=== PATIENT | male | born 1975 | race Caucasian/White ===

== ENCOUNTER 2023-04-27 11:49 | Outpatient (AMB) | payer OTHER, SELFPAY ==
[2023-04-27 11:56] VITALS: BP 126/74; PULSE 67; RESP 12; TEMP 36.6; O2SAT 99; BMI 29.2
--- NOTE | 2023-04-27 11:56 | MHC.PC.OV ---
Vital Signs 04/27/23 11:56 Height 5 ft 7 in Weight 186 lb 6 oz BMI 29.2 BP 126/74 Blood Pressure Location Lt brachial Position Sitting Respiration 12 Pulse 67 Pulse Source Pulse Oximeter Temp 97.8 F Temp Source Temporal Artery Scan Pulse Oximetry (%) 99 Oxygen Delivery Method Room Air Intake Visit Reasons: phy Intake Note: Patiuent would like a refill on Viagra. [facility] Director Required: No Accompanied by: Self / Same As Patient Allergies No Known Allergies Allergy (Verified 04/27/23 12:04) Tobacco use date assessed: 04/27/23 Dental Screening Dental Screen Date: 04/27/23 Did you have a dental visit in the last 12 months?: Yes Did you have a dental problem in the last 6 months where you did not have access to dental care?: No Was dental information given to patient?: Patient has dentist HPI phy HPI Details 47 y/o male presents for a CPE with f/u labs and health maintenance. No recent labs to review. Pt does report some urinary frequency. HPI Comments History of Present Illness Details Documentation assistance for Zechariah Landers MD, was provided by Martín Ulloa,?Cheese Specialist on 04/27/2023 12:35 PM EST. I, Dr. Landers, have read, observed, and verified documentation.? 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 1. Little interest or pleasure in doing things: several days 2. Feeling down, depressed, or hopeless: several days 3. Trouble falling or staying asleep, or sleeping too much: not at all 4. Feeling tired or having little energy: several days 5. Poor appetite or overeating: not at all 6. Feeling bad about yourself - or that you are a failure or have let yourself or your family down: not at all 7. Trouble concentrating on things, such as reading the newspaper or watching television: nearly every day 8. Moving or speaking so slowly that other people could have noticed. Or the opposite - being so fidgety or restless that you have been moving around a lot more than usual: several days 9. Thoughts that you would be better off or of hurting yourself in some way: not at all Total score: 7 Depression Screening Interpretation: Positive Depression Screening Done: Yes 27942 - PHQ-9 Billing: Yes Source: Developed by Drs. Rosendo Ochoa, Stacey Coleman, Mello Palacio and colleagues, with an educational carmelita from [employer]. AUDIT C Alcohol Use Questionnaire (AUDIT-C) 1. How often do you have a drink containing alcohol?: 2-4 times a month 2. How many drinks containing alcohol do you have on a typical day when you are drinking?: 5 or 6 3. How often do you have six or more drinks on one occasion?: Weekly Total Score: 7 MENDY-7 AMB Questionnaire MENDY-7 Date MENDY - 7 assessed: 04/27/23 Feeling nervous, anxious, or on edge: 1 = Several days Not being able to stop or control worryin = Not at all Worrying too much about different things: 1 = Several days Trouble relaxin = Several days Being so restless that it is hard to sit still: 1 = Several days Becoming easily annoyed or irritable: 2 = More than half the days Feeling afraid as if something awful might happen: 0 = Not at all Total MENDY-7 score (0-4 normal; 5-9 mild; 10-14 moderate; 15-21 severe): 6 Source: Developed by Drs. Rosendo Ochoa, Stacey Coleman, Mello Palacio and colleagues, with an educational carmelita from [employer]. MENDY-7 Assessment Billing MENDY-7 Assessment Tool: MENDY-7 Assessment 73196 Review of Systems Const Denies chills, Denies fatigue, Denies fever(s), Denies headache(s) and Denies weakness Eyes Denies change in vision ENT Denies dizziness, Denies headache(s), Denies hearing loss, Reports nasal congestion, Denies sinus pain, Denies sinus pressure and Denies sore throat Card Denies chest pain, Denies lightheadedness, Denies dyspnea and Denies other (palpitations) Resp Denies cough, Denies dyspnea and Denies wheezing GI Denies abdominal pain, Denies melena, Denies hematochezia, Denies change in bowel habits, Denies dyspepsia and Denies nausea Denies hematuria, Denies dysuria and Reports urinary frequency Musc Denies abnormal gait, Denies myalgias, Denies arthralgias, Denies numbness and Denies tingling Skin/Breast Denies rash, Denies unusual bruising and Denies wounds Neuro Denies abnormal gait, Denies dizziness, Denies headache(s), Denies memory loss, Denies numbness, Denies Sensory deficit (Neuro), Denies tingling and Denies weakness Psych Denies anxiety, Denies depression and Denies memory loss Endo Denies cold intolerance, Denies fatigue, Denies heat intolerance, Denies polydipsia and Denies polyuria Viet/Lymph Denies easy bleeding and Denies easy bruising Aller/Immun Denies wheezing Physical exam (Primary Care) Vital Signs: Last Vital Signs Temp 97.8 F 04/27/23 11:56 Pulse 67 04/27/23 11:56 Resp 12 04/27/23 11:56 BP 126/74 04/27/23 11:56 Pulse Ox 99 04/27/23 11:56 Oxygen Delivery Method Room Air 04/27/23 11:56 BMI result Body Mass Index 29.2 Tobacco/Smoking Status: Tobacco use Status Tobacco use date assessed 04/27/23 04/27/23 12:13 Patient Tobacco Use Status Former Tobacco user 04/27/23 12:13 Tobacco use type Cigarette 04/27/23 12:13 e-Cigarette/Vaping Use Former Use 04/27/23 12:13 PHQ-9: PHQ-9 Score PHQ-9: Total score 7 04/27/23 12:34 Depression Screening Interpretation: Positive Const General: no acute distress, well developed, alert and awake Nutritional Appearance: well nourished Orientation/consciousness: patient oriented x3 HENMT Head: Yes normocephalic and Yes atraumatic Ears: hearing grossly normal bilaterally and TM's normal bilaterally General nose exam: Normal external nose present and Normal nares present Mouth: Normal oral and palatal mucosa present and moist mucous membranes Teeth and gingiva: dentition normal Throat: Yes posterior oropharynx normal Eyes General: appearance normal, both eyes and all related structures Pupils: Equal, round and reactive pupils present and Pupil accommodation reflex normal EOM: EOMs intact bilaterally Neck Neck: Yes normal visual inspection, Yes no lymphadenopathy and Yes trachea midline Thyroid: Thyroid normal Carotids: no bruits Lymphatic: no lymphadenopathy noted Chest Chest palpation & inspection: normal inspection of the chest Resp Effort & Inspection: normal respiratory effort Auscultation: clear to auscultation bilaterally Cardio Rate: regular rate Rhythm: regular rhythm Heart sounds: S1 normal heart sound present, S2 normal heart sound present, no gallops, no murmurs and no rubs Bruits: no abdominal aortic bruits and no carotid bruits GI Palpation (GI): No Abdominal aortic bruit present, Soft to palpation, nontender, No hepatosplenomegaly present and No Rebound tenderness present Auscultation: normal bowel sounds General: Yes no CVA tenderness Back/Spine/Pelvis Back: no CVA tenderness Cervical Spine: cervical ROM normal and No Cervical spine tenderness Thoracic/Lumbar Spine: thoraco-lumbar ROM normal, No pain with thoraco-lumbar ROM, No thoracic spinal tenderness and No lumbar spinal tenderness Skin Lesions: no lesions Rashes: no rashes Trauma: no lacerations or abrasions Wounds: no wounds Nails: normal Neuro General: patient oriented x3 Cranial nerves: Yes Equal, round and reactive pupils present Cognition (Neuro): normal cognition Gait exam (Neuro): Normal gait present Motor exam (neuro): 5/5 motor strength present throughout Sensory Exam: No Sensory deficit (Neuro) Deep tendon reflexes (DTR's): Right patellar reflex intensity grade: 2+ and Left patellar reflex intensity grade: 2+ Extrem General: Yes normal to inspection and No edema Psych Appearance: grossly normal Affect: normal affect Attitude: cooperative Thought process: Normal thought process present Assessment and Plan Assessment & Plan (1) Adult general medical exam: Code(s): Z00.00 - Encounter for general adult medical examination without abnormal findings Plan: 47-year-old?male?presents?for?complete?physical?exam Encouraged?healthy?diet?with?active?lifestyle?and?plenty?of?exercise (2) Erectile dysfunction: Code(s): N52.9 - Male erectile dysfunction, unspecified Plan: Benefits?from?sildenafil Refilled (3) Nasal congestion: Code(s): R09.81 - Nasal congestion Plan: Nasal?congestion?and?possible?small?polyp?at?left?Lindsey Trial?Flonase (4) Urinary frequency: Code(s): R35.0 - Frequency of micturition Plan: Possible?BPH Check?labs?including?PSA?and?urinalysis (5) Screening for colon cancer: Code(s): Z12.11 - Encounter for screening for malignant neoplasm of colon Plan: Due?for?colonoscopy. Also?has?family?history?of?polyps Referred (6) Screening for prostate cancer: Code(s): Z12.5 - Encounter for screening for malignant neoplasm of prostate Plan: Check?PSA (7) Family history of colon polyps, unspecified: Code(s): Z83.719 - Family history of colon polyps, unspecified Orders: Orders Lipid Panel Today Z00.00 - Encounter for general adult medical examination without abnormal findings Microalbumin, Random (w Creat) Today I10 - Essential (primary) hypertension Prostate Specific Antigen Scr Today Z12.5 - Encounter for screening for malignant neoplasm of prostate UA and rflx microscopic Today Z00.00 - Encounter for general adult medical examination without abnormal findings Comprehensive [place]. Panel Fast Today Z00.00 - Encounter for general adult medical examination without abnormal findings TSH reflex Free T4 Today Z00.00 - Encounter for general adult medical examination without abnormal findings Referrals Gastroenterology Referral Z12.11 - Encounter for screening for malignant neoplasm of colon, Z83.719 - Family history of colon polyps, unspecified Neuropsychiatry Referral R41.840 - Attention and concentration deficit Medications: New fluticasone propionate 50 mcg/actuation (Flonase Allergy Relief) administer into each nostril 1 spray intranasal Q12H 16 grams 2RF 30 days bupropion HCl 75 mg PO BID 60 tabs 1RF 30 days Refilled sildenafil (Viagra) administer 30 minutes to 4 hours before activity 100 mg PO DAILY 15 days PRN 4 tabs 6RF sexual activity Coding Level of Care Code Est Pt Level 3 (97464) Est Pt Prev Care 40-64y(07304) Diagnoses Adult general medical exam Z00.00 Erectile dysfunction N52.9 Nasal congestion R09.81 Urinary frequency R35.0 Screening for colon cancer Z12.11 Screening for prostate cancer Z12.5 Family history of colon polyps, unspecified Z83.719 Additional Codes MENDY-7 Assessment Billing - MENDY-7 Assessment Tool: MENDY-7 Assessment 92812 ([id number])
== END 2023-04-27 13:07 | disposition home or self-care (01) ==
PROVIDERS: PCP Family Medicine; Visit Provider Family Medicine
DX: Z00.00 Encounter for general adult medical examination without abnormal findings (principal); N52.9 Male erectile dysfunction, unspecified; R09.81 Nasal congestion; R35.0 Frequency of micturition; Z12.11 Encounter for screening for malignant neoplasm of colon; Z12.5 Encounter for screening for malignant neoplasm of prostate; Z83.719 Family history of colon polyps, unspecified
CPT/HCPCS: 99396

== ENCOUNTER 2023-05-06 12:18 | Outpatient (REF) | payer OTHER, SELFPAY ==
[2023-05-06 14:46] LABS: Appearance Urine Clear; Color Urine Yellow; Glucose Urine UA Negative (Negative); Leukocyte Esterase Urine Negative (Negative); Nitrite Urine Negative (Negative); Urine Blood Negative (Negative); Urine Ketones Negative (Negative); Urine Protein Negative (Neg-Trace)
[2023-05-06 15:11] LABS: Alanine Aminotransferase 37 U/L (0-40); Albumin Level 4.2 g/dL (3.5-5.0); Alkaline Phosphatase 44 U/L (39-117); Anion Gap 13 (12-20); Aspartate Amino Transferase 26 U/L (5-37); Bilirubin Total 0.9 mg/dL (0.0-1.0); Blood Urea Nitrogen 19 mg/dL (9-16); Calcium 9.5 mg/dL (8.4-10.2); Carbon Dioxide 27 mmol/L (22-29); Chloride 103 mmol/L (96-108); Cholesterol 245 mg/dL (<200); Estimated Glomerular Filt Rate > 60; Glucose Fasting 86 mg/dL (60-99); HDL Cholesterol 46 mg/dL (>40); LDL Cholesterol Calculated 173 mg/dL (<100); Potassium 4.2 mmol/L (3.3-5.1); Sodium 139 mmol/L (135-145); Total Protein 7.4 g/dL (6.5-8.0); Triglycerides 133 mg/dL (<150)
[2023-05-06 15:17] LABS: Prostate Specific Antigen Scr 0.53 ng/mL (<0.05-4.0); TSH reflex Free T4 1.25 uIU/mL (0.32-4.0)
[2023-05-06 15:30] LABS: Creatinine Urine 123.15 mg/dL; Microalbumin Urine < 5.0 mg/L
== END 2023-05-06 12:19 | disposition home or self-care (01) ==
LOC: HO.WFDLDS 12:18
PROVIDERS: Visit Provider Family Medicine
DX: Z00.00 Encounter for general adult medical examination without abnormal findings (principal); I10 Essential (primary) hypertension; Z12.5 Encounter for screening for malignant neoplasm of prostate
CPT/HCPCS: 36415; 80053; 80061; 81003; 82043; 82570; 84153; 84443

== ENCOUNTER 2023-05-19 12:54 | Outpatient (AMB) | payer OTHER, SELFPAY ==
--- NOTE | 2023-05-19 13:02 | MHC.OFFVIS ---
Intake Vital Signs 05/19/23 13:24 Height 5 ft 7 in Weight 184 lb BMI 28.8 BP 140/85 H Blood Pressure Location Lt brachial Position Sitting Pulse 55 Intake Visit Reasons: Colonoscopy Screening Allergies No Known Allergies Allergy (Verified 04/27/23 12:04) Medication List - Last Reconciled 05/19/23 by Mallory Rodriguez PA-C bupropion HCl 75 mg PO BID 30 days fluticasone propionate 50 mcg/actuation (Flonase Allergy Relief) 1 spray intranasal Q12H 30 days sildenafil (Viagra) 100 mg PO DAILY PRN 15 days HPI HPI Comments History of Present Illness Details A 47 y/o male referred for screening colonoscopy Mother- had polyps - no fam hx GI cancers Bowels normal Appetite good He has no nausea, vomiting, hematemesis, hematochezia fever chills PFSH Medical History Melanoma Surgical History Status post Mohs surgery Family History Other Substance abuse Social History Housing: House Patient Tobacco Use Status: Former Tobacco user Tobacco use type: Cigarette e-Cigarette/Vaping Use: Former Use service: No Current occupational status: employed 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 Cognitive needs: No Hearing needs: No Vision needs: No Review of Systems Const All systems reviewed & are unremarkable except as noted in HPI and below Card Denies dyspnea Resp Denies dyspnea GI Denies abdominal pain, Denies heartburn, Denies diarrhea, Denies nausea and Denies vomiting Physical Exam Vital Signs: Last Vital Signs Pulse 55 05/19/23 13:24 BP 140/85 H 05/19/23 13:24 BMI result Body Mass Index 28.8 Const General: cooperative, healthy appearing, comfortable, no acute distress and well developed Orientation/consciousness: No patient oriented x3 Limitations: no limitations Eyes Sclerae: sclerae normal Resp Effort & Inspection: normal respiratory effort and able to speak in complete sentences Auscultation: clear to auscultation bilaterally, no rales, no rhonchi and no wheezes Cardio Rate: regular rate Rhythm: regular rhythm Heart sounds: S1 normal heart sound present and S2 normal heart sound present GI Palpation (GI): Soft to palpation and nontender Auscultation: normal bowel sounds Skin General skin exam: no rashes or lesions noted Neuro General: No patient oriented x3 Extrem General: Yes full ROM Psych Appearance: grossly normal and well kempt Mental Status: mental status grossly normal Speech and movement: Normal speech and movement present and Clear speech present Affect: normal affect Attitude: cooperative Thought process: Normal thought process present Thought content: Normal thought content present Insight: Good insight present (Psych) Judgement: Good judgement present (Psych) Assessment & Plan Assessment & Plan (1) Screening for colon cancer: Comment: Mother for history of colon polyps Index screening colonoscopy No family history GI cancer Discussed procedure, rare risk need for a Code(s): Z12.11 - Encounter for screening for malignant neoplasm of colon Plan Index screening colonoscopy MiraLax Gatorade prep Orders: Orders Colonoscopy - GI Use Only Today Z12.11 - Encounter for screening for malignant neoplasm of colon Medications: New bisacodyl (Dulcolax (bisacodyl)) Day before procedure, prep day Take 4 tablets by mouth upon awakening followed by large glass of water 20 mg (4 x 5 mg) PO ONCE 4 tabs 0RF colonoscopy prep 1 day Z12.11 - Encounter for screening for malignant neoplasm of colon polyethylene glycol 3350 (Miralax) Take as directed by mouth the day before your procedure. 238 grams PO ONCE PRN 238 grams 0RF laxative effect 1 day Patient Instructions: Index screening colonoscopy MiraLax Gatorade prep Literature given Must be escorted due to anesthesia Encouraged to call questions or concerns Coding Level of Care Code New Pt Level 3 (42716) Diagnoses Screening for colon cancer Z12.11 Time Spent (min) 30
[2023-05-19 13:24] VITALS: BP 140/85; PULSE 55; BMI 28.8
== END 2023-05-19 13:48 | disposition home or self-care (01) ==
PROVIDERS: PCP Family Medicine; Visit Provider Physician Assistant
DX: Z12.11 Encounter for screening for malignant neoplasm of colon (principal); Z01.818 Encounter for other preprocedural examination
CPT/HCPCS: 99203

== ENCOUNTER → 2023-05-19 12:54 | Outpatient (BNVA) | payer OTHER, SELFPAY | PROVIDERS: PCP Family Medicine; Visit Provider Physician Assistant ==

== ENCOUNTER 2023-05-24 14:56 | Outpatient (AMB) | payer OTHER, SELFPAY ==
--- NOTE | 2023-05-24 15:01 | A.OFFPC_ITS ---
Vital Signs 05/24/23 15:02 Height 5 ft 7 in Weight 188 lb BMI 29.4 BP 108/70 Blood Pressure Location Lt brachial Position Sitting Respiration 13 Pulse 84 Pulse Source Pulse Oximeter Temp 98.9 F Temp Source Oral Pulse Oximetry (%) 98 Oxygen Delivery Method Room Air Intake Visit Reasons: cough with phlegm coming up, chest tightness Intake Note: Patient reports he has had a cough for ~3 weeks, coughing became productive ~1 week ago with some phlegm coming up and chest tightness. Patient reports sore throat. Patient reports he is out of breath quicker with this cough when he is doing something like yard work. Educational Sign Language Interpreter Required: No Accompanied by: Self / Same As Patient Allergies No Known Allergies Allergy (Verified 05/24/23 15:09) Tobacco use date assessed: 04/27/23 HPI HPI Comments History of Present Illness Details 47 y/o male presents with c/o ongoing co ugh for the past 3 weeks. He notes that the cough became productive a week and half ago with brownish phlegm. He reports associated sob with exertion. He notes that he woke up with mild sore throat today. No chest tightness. He denies sick contact. No fever, chills, body aches, fatigue, or weakness. He has not had upper respiratory viral testing. 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 Rosendo Ochoa, Stacey Coleman, Mello Palacio and colleagues, with an educational carmelita from [employer]. Review of Systems Const Details: Const Denies chills, Denies fatigue, Denies fever(s), Denies headache(s) and Denies weakness ENT Denies dizziness and Denies headache(s) Card Denies chest pain, Denies lightheadedness, Denies dyspnea and Denies other (Palpitations) Resp Reports cough, Denies dyspnea, Denies wheezing and Denies other ( shortness of breath) GI Denies abdominal pain, Denies melena, Denies hematochezia, Denies change in bowel habits, Denies dyspepsia and Denies nausea Denies hematuria and Denies dysuria Musc Denies abnormal gait, Denies myalgias, Denies arthralgias, Denies numbness and Denies tingling Skin/Breast Denies rash, Denies unusual bruising and Denies wounds Neuro Denies abnormal gait, Denies dizziness, Denies headache(s), Denies memory loss, Denies numbness, Denies Sensory deficit (Neuro), Denies tingling and Denies weakness Psych Denies anxiety, Denies depression, Denies memory loss Endo Denies cold intolerance, Denies fatigue, Denies heat intolerance, Denies polydipsia and Denies polyuria Aller/Immun Denies wheezing Physical exam (Primary Care) Vital Signs: Last Vital Signs Temp 98.9 F 05/24/23 15:02 Pulse 84 05/24/23 15:02 Resp 13 05/24/23 15:02 BP 108/70 05/24/23 15:02 Pulse Ox 98 05/24/23 15:02 Oxygen Delivery Method Room Air 05/24/23 15:02 BMI result Body Mass Index 29.4 Tobacco/Smoking Status: Tobacco use Status Tobacco use date assessed 04/27/23 04/27/23 12:13 Patient Tobacco Use Status Former Tobacco user 04/27/23 12:13 Tobacco use type Cigarette 04/27/23 12:13 e-Cigarette/Vaping Use Former Use 04/27/23 12:13 Const Other: General: no acute distress and well developed Nutritional Appearance: well nourished Orientation/consciousness: patient oriented x3 HENMT Head is normocephalic Bilateral ear canal and TM are normal Nasal turbinates and oropharynx are pink and moist Sinuses are nontender with palpation No auricular or cervical lymphadenopathy Eyes General: appearance normal, both eyes and all related structures Pupils: Equal, round and reactive pupils present EOM: EOMs intact bilaterally Resp Effort & Inspection: normal respiratory effort Auscultation: clear to auscultation bilaterally Cardio Rate: regular rate Rhythm: regular rhythm Heart sounds: S1 normal heart sound present, S2 normal heart sound present, no gallops, no murmurs and no rubs GI Palpation (GI): No Abdominal aortic bruit present, Soft to palpation, nontender, No hepatosplenomegaly present and No Rebound tenderness present Auscultation: normal bowel sounds General: Yes no CVA tenderness Back/Spine/Pelvis Back: no CVA tenderness Cervical Spine: cervical ROM normal and No Cervical spine tenderness Thoracic/Lumbar Spine: thoraco-lumbar ROM normal, No pain with thoraco-lumbar ROM, No thoracic spinal tenderness and No lumbar spinal tenderness Extrem General: Yes normal to inspection, No edema and No calf tenderness Skin General: warm and dry. Normal skin color. Normal skin turgor Lesions: no lesions Rashes: no rashes Trauma: no lacerations or abrasions Wounds: no wounds Nails: normal Neuro General: patient oriented x3, gait normal and no focal neuro deficit Cranial nerves: Yes Equal, round and reactive pupils present Cognition (Neuro): normal cognition Gait exam (Neuro): Normal gait present Sensory Exam: No Sensory deficit (Neuro) Psych Appearance: grossly normal Affect: normal affect Attitude: cooperative Thought process: Normal thought process present Assessment and Plan Assessment & Plan (1) Viral upper respiratory illness: Code(s): J06.9 - Acute upper respiratory infection, unspecified Plan: Likely viral illness though possibly allergies. No exam evidence of bacterial infection Viral illness There is no antibiotic medication for viruses.? They must run their course.? Most average 5-7 days but 7-10 days is not uncommon and up to 14 days is still possible.? A cough is often the last symptom to resolve and this can last for weeks in some cases. Rest Hydrate well -? Drink plenty of fluids.? Especially water. Tylenol or ibuprofen for muscle aches, headache, fever/discomfort Cannot rule out COVID-19/RSV/Flu infection Nasal swab acquired and will be sent to the lab Return for new or worsening symptoms Verbalized understanding and agreed with treatment plan. Orders: Orders SARS-CoV2/FLU/RSV Today J06.9 - Acute upper respiratory infection, unspecified Medications: New benzonatate 200 mg PO BID PRN 20 caps 0RF cough Coding Level of Care Code Est Pt Level 3 (05871) Diagnoses Viral upper respiratory illness J06.9
[2023-05-24 15:02] VITALS: BP 108/70; PULSE 84; RESP 13; TEMP 37.2; O2SAT 98; BMI 29.4
== END 2023-05-24 16:14 | disposition home or self-care (01) ==
PROVIDERS: PCP Family Medicine; Visit Provider Nurse Practitioner Family
DX: J06.9 Acute upper respiratory infection, unspecified (principal)
CPT/HCPCS: 99213

== ENCOUNTER 2023-05-24 15:31 | Outpatient (REF) | payer OTHER, SELFPAY ==
[2023-05-25 12:53] LABS: Influenza A PCR NEGATIVE (Negative); Influenza B PCR NEGATIVE (Negative); Resp Syncy Virus RNA Qual PCR POSITIVE (Negative); SARS COV2 PCR INHOUSE NEGATIVE (Negative)
== END 2023-05-24 15:32 | disposition home or self-care (01) ==
LOC: HO.LAB 15:31
PROVIDERS: Visit Provider Nurse Practitioner Family
DX: Z11.52 Encounter for screening for COVID-19 (principal); Z20.822 Contact with and (suspected) exposure to COVID-19; R09.89 Other specified symptoms and signs involving the circulatory and respiratory systems
CPT/HCPCS: 0241U

== ENCOUNTER 2023-06-02 09:50 | Outpatient (AMB) | payer OTHER, SELFPAY ==
--- NOTE | 2023-06-02 09:43 | MHC.PC.OV ---
Intake Visit Reasons: f/u CPE-labs Intake Note: Patient is calling to go over labs, still feels the Bupropion isn't working well yet. Allergies No Known Allergies Allergy (Verified 06/02/23 09:44) Tobacco use date assessed: 04/27/23 HPI f/u CPE-labs HPI Details 47 y/o male presents to f/u CPE-labs via telemedicine. Labs were drawn 05/06/23. Reviewed labs with pt. Triglycerides 133. TC 245. LDL 173. HDL 46. Tested positive for RSV 05/24/23. Pt reports ongoing nasal congestion from his viral illness. He has trialed bupropion x1 month for his difficulty concentrating. He reports this has not helped. He has not been contacted by neuropsychiatry yet. 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 Rosendo Ochoa, Stacey Coleman, Mello Palacio and colleagues, with an educational carmelita from [employer]. Review of Systems Const Denies chills, Denies fatigue, Denies fever(s), Denies headache(s) and Denies weakness ENT Denies dizziness and Denies headache(s) Card Denies dyspnea Resp Denies cough, Denies dyspnea, Denies wheezing and Denies other (shortness of breath) Musc Denies numbness and Denies tingling Neuro Denies dizziness, Denies headache(s), Denies numbness, Denies tingling and Denies weakness Psych Denies anxiety and Denies depression Endo Denies fatigue Aller/Immun Denies wheezing Physical exam (Primary Care) Tobacco/Smoking Status: Tobacco use Status Tobacco use date assessed 04/27/23 06/02/23 09:49 Patient Tobacco Use Status Former Tobacco user 06/02/23 09:49 Tobacco use type Cigarette 06/02/23 09:49 e-Cigarette/Vaping Use Former Use 06/02/23 09:49 Telehealth Telehealth Location of provider rendering services: practice address Location of patient: address on file Patient Identification confirmed using: Name, : Yes Telehealth method: voice only Patient verbally consented to treatment: Yes Patient verbally consented to billing insurance company: Yes Patient informed of any privacy concerns related to visit: Yes Minutes spent on Phone/Video with Pt.: 10 Assessment and Plan Assessment & Plan (1) Hypercholesterolemia: Code(s): E78.00 - Pure hypercholesterolemia, unspecified Plan: LDL?cholesterol?is?too?high. He?will?trial?lifestyle?changes Will?repeat?lipids?in?about?3?months We?did?discuss?that?if?he?is?unable?to?make?significant?improvements?in?cholesterol?we?should?discuss?a?statin?medication?to?decrease?the?risk?of?heart?attacks?and?stroke (2) Difficulty concentrating: Code(s): R41.840 - Attention and concentration deficit Plan: Has?not?heard?from?neuropsychiatry?yet. Will?ask?the?office?to?check?on?the?status Gave?patient?the?phone?number?to?check?on?the?status?himself?as?well (3) Viral upper respiratory illness: Code(s): J06.9 - Acute upper respiratory infection, unspecified Plan: Slowly?resolving He?can?continue?to?treat?symptoms Recommended?plenty?of?rest?and?fluids Orders: Orders Lipid Panel Today E78.00 - Pure hypercholesterolemia, unspecified, Z00.00 - Encounter for general adult medical examination without abnormal findings Comprehensive [place]. Panel Fast Today E78.00 - Pure hypercholesterolemia, unspecified, Z00.00 - Encounter for general adult medical examination without abnormal findings Coding Level of Care Code Tele Est Pt Level 2 (89938) Diagnoses Hypercholesterolemia E78.00 Difficulty concentrating R41.840 Viral upper respiratory illness J06.9
== END 2023-06-02 11:11 | disposition home or self-care (01) ==
LOC: HO.HMGFM 09:50
PROVIDERS: PCP Family Medicine; Visit Provider Family Medicine
DX: E78.00 Pure hypercholesterolemia, unspecified (principal); R41.840 Attention and concentration deficit; J06.9 Acute upper respiratory infection, unspecified
CPT/HCPCS: 99212

== ENCOUNTER 2023-08-19 11:58 | Outpatient (REF) | payer BC, SELFPAY ==
[2023-08-19 14:51] LABS: Alanine Aminotransferase 27 U/L (0-40); Albumin Level 4.1 g/dL (3.5-5.0); Alkaline Phosphatase 46 U/L (39-117); Anion Gap 9 (12-20); Aspartate Amino Transferase 23 U/L (5-37); Bilirubin Total 0.7 mg/dL (0.0-1.0); Blood Urea Nitrogen 18 mg/dL (9-16); Calcium 9.2 mg/dL (8.4-10.2); Carbon Dioxide 29 mmol/L (22-29); Chloride 104 mmol/L (96-108); Cholesterol 220 mg/dL (<200); Estimated Glomerular Filt Rate > 60; Glucose Fasting 98 mg/dL (60-99); HDL Cholesterol 50 mg/dL (>40); LDL Cholesterol Calculated 142 mg/dL (<100); Potassium 4.4 mmol/L (3.3-5.1); Sodium 138 mmol/L (135-145); Total Protein 7.2 g/dL (6.5-8.0); Triglycerides 140 mg/dL (<150)
== END 2023-08-19 11:59 | disposition home or self-care (01) ==
LOC: HO.WFDLDS 11:58
PROVIDERS: Visit Provider Family Medicine
DX: Z00.00 Encounter for general adult medical examination without abnormal findings (principal); E78.00 Pure hypercholesterolemia, unspecified
CPT/HCPCS: 36415; 80053; 80061

== ENCOUNTER 2023-08-25 13:17 | Outpatient (AMB) | payer BC, SELFPAY ==
[2023-08-25 13:29] VITALS: BP 125/59; PULSE 61; O2SAT 99; BMI 28.2
--- NOTE | 2023-08-25 13:29 | A.OFFPC_ITS ---
Vital Signs 08/25/23 13:29 Height 5 ft 7 in Weight 180 lb 6 oz BMI 28.2 BP 125/59 L Blood Pressure Location Lt brachial Position Supine Pulse 61 Pulse Source Pulse Oximeter Pulse Oximetry (%) 99 Oxygen Delivery Method Room Air Intake Visit Reasons: f/u hypercholesterolemia Intake Note: Patient is here to follow up on his cholesterol today. Patient would like to have testosterone levels checked. Allergies No Known Allergies Allergy (Verified 08/25/23 13:31) Tobacco use date assessed: 08/25/23 Dental Screening Dental Screen Date: 08/25/23 Did you have a dental visit in the last 12 months?: Yes Did you have a dental problem in the last 6 months where you did not have access to dental care?: No Was dental information given to patient?: Patient has dentist HPI f/u hypercholesterolemia HPI Details 47 y/o male presents to f/u hypercholest erolemia. Blood pressure today 125/59. Labs were drawn 08/19/23. Reviewed labs with pt. Triglycerides 140. TC 220. LDL 142, which improved from 173. HDL 50. PFSH Medical History Melanoma Surgical History Status post Mohs surgery Family History Other Substance abuse Social History Housing: House Patient Tobacco Use Status: Former Tobacco user Tobacco use type: Cigarette e-Cigarette/Vaping Use: Former Use service: No Current occupational status: employed Current occupation: [employer] Cognitive needs: No Hearing needs: No Vision needs: No Questionnaire PHQ-9 Over the last 2 weeks, how often have you been bothered by any of the following problems? 1. Little interest or pleasure in doing things: not at all 2. Feeling down, depressed, or hopeless: not at all 3. Trouble falling or staying asleep, or sleeping too much: not at all 4. Feeling tired or having little energy: not at all 5. Poor appetite or overeating: not at all 6. Feeling bad about yourself - or that you are a failure or have let yourself or your family down: not at all 7. Trouble concentrating on things, such as reading the newspaper or watching television: not at all 8. Moving or speaking so slowly that other people could have noticed. Or the opposite - being so fidgety or restless that you have been moving around a lot more than usual: not at all 9. Thoughts that you would be better off or of hurting yourself in some way: not at all Total score: 0 Source: Developed by Drs. Rosendo Ochoa, Stacey Coleman, Mello Palacio and colleagues, with an educational carmelita from [employer]. Thrive Questionnaire Date Thrive assessed: 08/25/23 I am a: Patient What is your living situation today?: I have a steady place to live Within the past 12 months, did the food you bought not last and you didn't have the money to get more?: Never true Within the past 12 months, did you worry whether your food would run out before you got money to buy more?: Never true Do you have trouble paying for medicines?: No Do you have trouble getting transportation to medical appointments?: No Do you have trouble paying your heating and electricity bill?: No Do you have trouble taking care of your child, family member or friend?: No Do you have trouble with day-to-day activities such as bathing, preparing meals, shopping, managing finances, etc.?: No Are you currently unemployed and looking for a job?: No Are you interested in more education?: No THRIVE Score: 0 AUDIT C Alcohol Use Questionnaire (AUDIT-C) 1. How often do you have a drink containing alcohol?: 2-3 times a week 2. How many drinks containing alcohol do you have on a typical day when you are drinking?: 5 or 6 3. How often do you have six or more drinks on one occasion?: Never Total Score: 5 MENDY-7 AMB Questionnaire MENDY-7 Date MENDY - 7 assessed: 08/25/23 Feeling nervous, anxious, or on edge: 0 = Not at all Not being able to stop or control worryin = Not at all Worrying too much about different things: 0 = Not at all Trouble relaxin = Not at all Being so restless that it is hard to sit still: 0 = Not at all Becoming easily annoyed or irritable: 0 = Not at all Feeling afraid as if something awful might happen: 0 = Not at all Total MENDY-7 score (0-4 normal; 5-9 mild; 10-14 moderate; 15-21 severe): 0 Source: Developed by Drs. Rosendo Ochoa, Stacey Coleman, Mello Palacio and colleagues, with an educational carmelita from [employer]. Review of Systems Const Denies chills, Denies fatigue, Denies fever(s), Denies headache(s) and Denies weakness ENT Denies dizziness and Denies headache(s) Card Denies dyspnea Resp Denies cough, Denies dyspnea, Denies wheezing and Denies other (shortness of breath) Musc Denies numbness and Denies tingling Neuro Denies dizziness, Denies headache(s), Denies numbness, Denies tingling and Denies weakness Psych Denies anxiety and Denies depression Endo Denies fatigue Aller/Immun Denies wheezing Physical exam (Primary Care) Vital Signs: Last Vital Signs Pulse 61 08/25/23 13:29 BP 125/59 L 08/25/23 13:29 Pulse Ox 99 08/25/23 13:29 Oxygen Delivery Method Room Air 08/25/23 13:29 BMI result Body Mass Index 28.2 Tobacco/Smoking Status: Tobacco use Status Tobacco use date assessed 08/25/23 08/25/23 13:38 Patient Tobacco Use Status Former Tobacco user 08/25/23 13:30 Tobacco use type Cigarette 08/25/23 13:30 e-Cigarette/Vaping Use Former Use 08/25/23 13:30 PHQ-9: PHQ-9 Score PHQ-9: Total score 0 08/25/23 14:04 Thrive Assessment: Date of Thrive Assessment Date Thrive assessed 08/25/23 08/25/23 13:38 Const General: well developed; No acute distress Nutritional Appearance: well nourished Orientation/consciousness: patient oriented x3 HENMT Head: Yes normocephalic and Yes atraumatic Eyes General: appearance normal, both eyes and all related structures Pupils: Equal, round and reactive pupils present EOM: EOMs intact bilaterally Resp Effort & Inspection: normal respiratory effort Neuro General: patient oriented x3 and gait normal Cranial nerves: Yes Equal, round and reactive pupils present Psych Affect: normal affect Assessment and Plan Assessment & Plan (1) Hypercholesterolemia: Code(s): E78.00 - Pure hypercholesterolemia, unspecified Plan: Lipids?significantly?improved.??LDL?much?near?to?goal?and?HDL?has?increased. Good?HDL?ratio LDL?still?a?silvano le?above?goal?so?encouraged?ongoing?diet?low?in?saturated?fats?and?cholesterol.? ?Encouraged?exercise?and?weight?loss (2) Erectile dysfunction: Code(s): N52.9 - Male erectile dysfunction, unspecified Plan: Patient?has?complaint?of?erectile?dysfunction?and?some?fatigue. Will?check?testosterone?level (3) Fatigue: Code(s): R53.83 - Other fatigue (4) Elevated BP without diagnosis of hypertension: Code(s): R03.0 - Elevated blood-pressure reading, without diagnosis of hypertension Plan: Patient?had?had?elevated?blood?pressure?without?diagnosis?of?hypertension. He?has?been?exercising?and?has?lost?weight. Blood?pressures?are?controlled. No?hypertension Plan Patient?also?has?a?flexor?tendon?sheath variation. No?pain?or?dysfunction. He?will?let?me?know?if?this?changes Orders: Orders Testosterone, Free/Total Today N52.9 - Male erectile dysfunction, unspecified, R53.83 - Other fatigue Coding Level of Care Code Est Pt Level 4 (84406) Diagnoses Hypercholesterolemia E78.00 Erectile dysfunction N52.9 Fatigue R53.83 Elevated BP without diagnosis of hypertension R03.0
== END 2023-08-25 14:33 | disposition home or self-care (01) ==
PROVIDERS: PCP Family Medicine; Visit Provider Family Medicine
DX: E78.00 Pure hypercholesterolemia, unspecified (principal); N52.9 Male erectile dysfunction, unspecified; R53.83 Other fatigue; R03.0 Elevated blood-pressure reading, without diagnosis of hypertension
CPT/HCPCS: 99214

== ENCOUNTER 2023-10-03 12:37 | Outpatient (REF) | payer BC, SELFPAY ==
[2023-10-08 23:28] LABS: Testosterone, Free 117.4 pg/mL (35.0-155.0); Testosterone, Total 481 ng/dL (250-1100)
== END 2023-10-03 12:38 | disposition home or self-care (01) ==
LOC: HO.WFDLDS 12:37
PROVIDERS: Visit Provider Family Medicine
DX: N52.9 Male erectile dysfunction, unspecified (principal); R53.83 Other fatigue
CPT/HCPCS: 36415; 84402; 84403

== ENCOUNTER 2023-10-24 11:06 | Day surgery (SDC) | payer BC, SELFPAY ==
[2023-10-20 15:03] VITALS: BMI 28.2
--- NOTE | 2023-10-21 13:34 | HO.ANESPROP2 ---
Documented by User: Brenna Santillan NP 10/21/23 13:34 HPI - Anesthesia Eval Consult details Narrative: 47yo M for Colonoscopy [facility] Active Problems Active Problems: All Active Problems Fatigue (Acute) Hypercholesterolemia (Acute) Viral upper respiratory illness (Acute) Nasal congestion (Acute) Urinary frequency (Acute) Screening for prostate cancer (Acute) Screening for colon cancer (Acute) Adult general medical exam (Acute) Difficulty concentrating (Acute) Erectile dysfunction (Acute) Laboratory examination ordered as part of a complete physical examination (Acute) Past Medical History Medical History Melanoma Family History Family History Other Substance abuse Surgical History Surgical History Status post Mohs surgery Social History Social History Housing: House Patient Tobacco Use Status: Former Tobacco user Tobacco use type: Cigarette e-Cigarette/Vaping Use: Former Use Use of substances other than those prescribed or required for medical reasons: Yes Are you DNR?: No Advance Directives: No Advance Directives Information Provided: Yes service: No Current occupational status: employed Current occupation: [employer] Cognitive needs: No Hearing needs: No Vision needs: No Meds Allergies Allergy/AdvReac Type Severity Reaction Status Date / Time No Known Allergies Allergy Verified 10/24/23 11:20 Exam Height,Weight and Vital Signs: Height 5 ft 7 in Weight 81.647 kg Pertinent Lab Results Pertinent Lab Results: Laboratory Tests 08/19/23 12:00 Sodium 138 Potassium 4.4 Chloride 104 Carbon Dioxide 29 BUN 18 H Creatinine 1.06 Assessment and Plan Assessment Anesthesia Assessment: Chart Reviewed Documented by User: Kailyn Pillai MD 10/24/23 11:58 [facility] Past Medical History Medical History Melanoma Family History Family History Other Substance abuse Family history of problems with anesthesia: No Surgical History Surgical History Status post Mohs surgery History of Problems with Anesthesia: No Social History Social History Housing: House Patient Tobacco Use Status: Former Tobacco user Tobacco use type: Cigarette e-Cigarette/Vaping Use: Former Use Use of substances other than those prescribed or required for medical reasons: Yes Are you DNR?: No Advance Directives: No Advance Directives Information Provided: Yes service: No Current occupational status: employed Current occupation: [employer] Cognitive needs: No Hearing needs: No Vision needs: No Meds Allergies Allergy/AdvReac Type Severity Reaction Status Date / Time No Known Allergies Allergy Verified 10/24/23 11:20 Exam Airway Mallampati Class: II (implant top left on the side) TM Dist: >3cm Neck ROM: Full Heart: rrr Lungs: cta Assessment and Plan Assessment Anesthesia Assessment: Anesthesia Plan Discussed Final Anesthetic Review Family History of Problems with Anesthesia: No History of Problems with Anesthesia: No NPO: Yes ASA Class: II Final Preanesthetic Review: No Changes in Pt Med Stat, Meds/Allgs Chart Reviewed and Consent Obtained/Reviewed Patient Risk: Low Procedure Risk: Low Anesthetic Plan Anesthetic Plan: MAC: Disposition: Standard PACU
--- NOTE | 2023-10-24 10:28 | MHC.SHP ---
Pre-Procedural Eval Section A - 24 Hr Update-Section A only Date of Service: 10/24/23 The patient is an INPATIENT: No The patient has been examined within 24 hours of the surgical procedure. The History & Physical has been completed within 30 days and I have reviewed it.: No Section B - Complete if H&P > 30 days Chief Complaint: Colon cancer screening Relevant Family History (Specify if Yes): Yes Relevant Social History: Tobacco Use (Former smoker) Present Medications: see Short Stay Collaborative assessment Medical History: Significant History (History of melanoma, hypercholesterolemia) History of Previous Operations: Relevant previous surgery/procedure and date(s) (Status post Mohs surgery) Allergies: Allergies Allergy/AdvReac Type Severity Reaction Status Date / Time No Known Allergies Allergy Verified 10/19/23 14:37 Review of Systems Sugical H&P ROS: Negative: Constitution, Cardiovascular, Respiratory and Gastrointestinal Exam Surgical H&P Exam: Normal: Heart, Normal: Lungs, Normal: Extremities and Normal: Abdomen Plan Diagnosis/Plan: Unchanged I have reviewed the history and physical and performed a pertinent physical examination on my patient. No changes have occurred unless specified. Time Spent With Patient Time: Total time managing care of this patient today ____ minutes.
[2023-10-24 11:20] VITALS: BMI 28.2
[2023-10-24 11:30] VITALS: BP 124/72; PULSE 67; RESP 16; TEMP 36.8; O2SAT 98
[2023-10-24] MEDS: Lactated Ringers 1,000 ML 100 ML IVCONT (11:40)
--- NOTE | 2023-10-24 12:01 | P.OP_ITS ---
Operative Note Operative Note Date of Service: 10/24/23 Narrative: COLONOSCOPY TILL CECUM WITH BIOPSIES, SNARE POLYPECTOMY, SUBMUCOSAL INJECTION AND HEMOCLIP PLACEMENT Pre-op diagnosis: Colon cancer screening, family history of colon polyps. Post-op diagnosis:? Colon polyp, Diverticulosis, hemorrhoids Endoscopist:? Savi Gill MD Anesthesia:?MAC Consent: Indications for the procedure and potential complications of bleeding, perforation, reaction to medications and missed diagnosis were discussed with the patient and informed consent was obtained. Instrument: Olympus CF H 190 L variable stiffness adult colonoscope Monitoring: Vital signs and clinical assessment, intermittent blood pressure monitoring, continuous EKG monitoring, Pulse oximetry and Carbon Dioxide monitoring were done throughout the procedure. Please see anesthesia flowsheet. Colon withdrawl time was 35 minutes. Procedure: The patient was placed in the left lateral decubitis position and pre-procedure medications were administered. After a digital rectal examination of the ano-rectum, the video colonoscope was inserted into the rectum and advanced through the colon to the cecum. The colonoscope was slowly withdrawn in a retrograde panoramic fashion and the colon mucosa was carefully examined including a retroflexed view of the rectum. Findings and interventions are described below. Procedure Difficulty: without difficulty Findings: Terminal Ileum: Not evaluated Cecum: Normal Ascending Colon: A 10-12 mm flat polyp in the proximal AC. Polyp was raised with 5 cc of [place] and removed with a stiff hot snare. Polypectomy site was closed with 1 hemoclip Transverse Colon: A 10-12 mm sessile polyp - removed with a hot snare. Descending Colon: A 10 mm flat polyp raised with 3 cc of [place] and removed with a hot snare. Polypectomy site was closed with 2 hemoclips Sigmoid Colon: A 6-7 mm sessile polyp - removed with a cold snare. Moderate diverticulosis Rectum: Two 3-5 mm sessile polyps - removed with a cold biopsy Ano-rectum: Small internal hemorrhoids Colon preparation: Excellent. [place] Bowel Preparation Scale Right colon; 3 Transverse colon: 3 Left colon; 3 (0 = Unprepared colon segment with mucosa not seen due to solid stool that cannot be cleared. 1 = Portion of mucosa of the colon segment seen, but other areas of the colon segment not well seen due to staining, residual stool and/or opaque liquid. 2 = Minor amount of residual staining, small fragments of stool and/or opaque liquid, but mucosa of colon segment seen well. 3 = Entire mucosa of colon segment seen well with no residual staining, small fragments of stool or opaque liquid) Impression and Post Procedure Diagnosis: Colonoscopy Findings: Six small to medium sized polyps were removed Moderate diverticulosis seen in the sigmoid colon Small hemorrhoids on retroflexed exam. Plan: I will send a letter with biopsy results Repeat Colonoscopy in 3-5 years if polyps are adenomatous and 10 year if polyps are hyperplastic. Above findings were reviewed with the patient and relevant handouts were given and the discharge area. BIOPSIES SHOWED: A. Colon, ascending, polypectomy: Fragments of sessile serrated lesion/polyp; negative for cytologic dysplasia. B. Colon, transverse, polypectomy: Fragments of tubular adenoma; negative for high-grade dysplasia or carcinoma. C. Colon, descending, polypectomy: Hyperplastic mucosal polyp. D. Colon, sigmoid, polypectomy: Hyperplastic mucosal polyp. E. Rectum, polypectomy: Hyperplastic mucosal polyp. Letter sent advising repeat colonoscopy in 3 years
[2023-10-24 12:46] VITALS: BP 97/56; PULSE 66; RESP 16; TEMP 36.1; O2SAT 99
[2023-10-24 13:01] VITALS: BP 119/76; PULSE 60; RESP 15; TEMP 36.1; O2SAT 100
[2023-10-24 13:14] VITALS: BP 122/68; PULSE 60; RESP 15; TEMP 36.2; O2SAT 100
== END 2023-10-24 14:41 | disposition home or self-care (01) ==
PROVIDERS: PCP Family Medicine; Visit Provider Internal Medicine Gastroenterology
PROC: 0DJD8ZZ Inspection of Lower Intestinal Tract, Via Natural or Artificial Opening Endoscopic (ICD-10-PCS; CPT 45378; principal; 2023-10-24 13:10)
DX: Z12.11 Encounter for screening for malignant neoplasm of colon (principal); D12.2 Benign neoplasm of ascending colon; D12.3 Benign neoplasm of transverse colon; K63.5 Polyp of colon; K62.1 Rectal polyp; K57.30 Diverticulosis of large intestine without perforation or abscess without bleeding; K64.8 Other hemorrhoids; E78.00 Pure hypercholesterolemia, unspecified; Z85.820 Personal history of malignant melanoma of skin; Z79.51 Long term (current) use of inhaled steroids; Z79.899 Other long term (current) drug therapy; Z87.891 Personal history of nicotine dependence
CPT/HCPCS: 45385; 45380; 45381; 88305; J2250; J2704

== ENCOUNTER → 2023-10-24 11:06 | Outpatient (BNV) | payer BC, SELFPAY | PROVIDERS: PCP Family Medicine; Visit Provider Internal Medicine Gastroenterology | DX: Z12.11 Encounter for screening for malignant neoplasm of colon (principal); K63.5 Polyp of colon; K57.90 Diverticulosis of intestine, part unspecified, without perforation or abscess without bleeding; K64.8 Other hemorrhoids; Z83.719 Family history of colon polyps, unspecified | CPT/HCPCS: 45380; 45381; 45385 ==

== ENCOUNTER 2024-09-19 11:33 | Outpatient (AMB) | payer OTHER, SELFPAY ==
--- NOTE | 2024-09-19 11:44 | A.OFFPC_ITS ---
Vital Signs 09/19/24 11:46 Respiration 12 Pulse 61 Pulse Source Pulse Oximeter Temp 97.8 F Temp Source Oral Pulse Oximetry (%) 98 Oxygen Delivery Method Room Air Intake Visit Reasons: umbilical hernia Intake Note: pt is here to follow up with concerns about a umbilical hernia Finance Controller Required: No Allergies No Known Allergies Allergy (Verified 09/19/24 11:46) Tobacco use date assessed: 10/19/23 Dental Screening Dental Screen Date: 08/25/23 HPI umbilical hernia HPI Details 48 y/o male presents today with ? umbili francoise hernia. Notes he passes stool okay. He reports bloating x2 years. He notes he has noticed it pushing out a little more after doing push-ups. Reports ongoing difficulty concentrating which has been affecting his work and personal life. Has trialed bupropion which he states did not help. 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 1. Little interest or pleasure in doing things: not at all 2. Feeling down, depressed, or hopeless: not at all 3. Trouble falling or staying asleep, or sleeping too much: not at all 4. Feeling tired or having little energy: not at all 5. Poor appetite or overeating: not at all 6. Feeling bad about yourself - or that you are a failure or have let yourself or your family down: not at all 7. Trouble concentrating on things, such as reading the newspaper or watching television: not at all 8. Moving or speaking so slowly that other people could have noticed. Or the opposite - being so fidgety or restless that you have been moving around a lot more than usual: not at all 9. Thoughts that you would be better off or of hurting yourself in some way: not at all Total score: 0 Source: Developed by Drs. Rosendo Ochoa, Stacey Coleman, Mello Palacio and colleagues, with an educational carmelita from [employer]. Thrive Questionnaire Date Thrive assessed: 08/25/23 I am a: Patient What is your living situation today?: I have a steady place to live Within the past 12 months, did the food you bought not last and you didn't have the money to get more?: I choose not to answer this question Within the past 12 months, did you worry whether your food would run out before you got money to buy more?: I choose not to answer this question Do you have trouble paying for medicines?: No Do you have trouble getting transportation to medical appointments?: No Do you have trouble paying your heating and electricity bill?: No Do you have trouble taking care of your child, family member or friend?: I choose not to answer this question Do you have trouble with day-to-day activities such as bathing, preparing meals, shopping, managing finances, etc.?: I choose not to answer this question Are you currently unemployed and looking for a job?: I choose not to answer this question Are you interested in more education?: I choose not to answer this question Please select the resources that you would like help with: None Currently or been in a relationship where the following occur: I choose not to answer THRIVE Score: 0 AUDIT C Alcohol Use Questionnaire (AUDIT-C) 1. How often do you have a drink containing alcohol?: 2-4 times a month 2. How many drinks containing alcohol do you have on a typical day when you are drinking?: 1 or 2 3. How often do you have six or more drinks on one occasion?: Less than monthly Total Score: 3 MENDY-7 AMB Questionnaire MENDY-7 Date MENDY - 7 assessed: 08/25/23 Feeling nervous, anxious, or on edge: 0 = Not at all Not being able to stop or control worryin = Not at all Worrying too much about different things: 0 = Not at all Trouble relaxin = Not at all Being so restless that it is hard to sit still: 0 = Not at all Becoming easily annoyed or irritable: 0 = Not at all Feeling afraid as if something awful might happen: 0 = Not at all Total MENDY-7 score (0-4 normal; 5-9 mild; 10-14 moderate; 15-21 severe): 0 Source: Developed by Drs. Rosendo Ochoa, Stacey Coleman, Mello Palacio and colleagues, with an educational carmelita from [employer]. Review of Systems Const Denies chills, Denies fatigue, Denies fever(s), Denies headache(s) and Denies weakness ENT Denies dizziness and Denies headache(s) Card Denies dyspnea Resp Denies cough, Denies dyspnea, Denies wheezing and Denies other (shortness of breath) Musc Denies numbness and Denies tingling Neuro Denies dizziness, Denies headache(s), Denies numbness, Denies tingling and Denies weakness Psych Denies anxiety and Denies depression Endo Denies fatigue Aller/Immun Denies wheezing Physical exam (Primary Care) Vital Signs: Last Vital Signs Temp 97.8 F 09/19/24 11:46 Pulse 61 09/19/24 11:46 Resp 12 09/19/24 11:46 Pulse Ox 98 09/19/24 11:46 Oxygen Delivery Method Room Air 09/19/24 11:46 Tobacco/Smoking Status: Tobacco use Status Tobacco use date assessed 10/19/23 09/19/24 11:49 Patient Tobacco Use Status Former Tobacco user 09/19/24 11:49 Tobacco use type Cigarette 09/19/24 11:49 e-Cigarette/Vaping Use Former Use 09/19/24 11:49 PHQ-9: PHQ-9 Score PHQ-9: Total score 0 09/19/24 12:04 Thrive Assessment: Date of Thrive Assessment Date Thrive assessed 08/25/23 09/19/24 11:49 Currently or been in a relationship where the following occur: I choose not to answer Const General: well developed; No acute distress Nutritional Appearance: well nourished Orientation/consciousness: patient oriented x3 HENMT Head: Yes normocephalic and Yes atraumatic Eyes General: appearance normal, both eyes and all related structures Pupils: Equal, round and reactive pupils present EOM: EOMs intact bilaterally Resp Effort & Inspection: normal respiratory effort Neuro General: patient oriented x3 and gait normal Cranial nerves: Yes Equal, round and reactive pupils present Psych Affect: normal affect Coding Level of Care Code Est Pt Level 4 (21771) Diagnoses Umbilical hernia K42.9 Difficulty concentrating R41.840 Assessment & Plan Assessment & Plan (1) Umbilical hernia: Code(s): K42.9 - Umbilical hernia without obstruction or gangrene Category: Medical Plan: Reducible?umbilical?hernia, worsening?with?exertion Referred?to?general?surgery?to?discuss?repair (2) Difficulty concentrating: Code(s): R41.840 - Attention and concentration deficit Category: Medical Plan: Ongoing?difficulty?concentrating?and?concern?for?ADHD He?had?tried?bupropion?without?any?improvement Had?made?referral?but?was?not?contacted. Will?refer again?for?evaluation Orders: Referrals General Surgery Referral K42.9 - Umbilical hernia without obstruction or gangrene Neuropsychiatry Referral R41.840 - Attention and concentration deficit
[2024-09-19 11:46] VITALS: PULSE 61; RESP 12; TEMP 36.6; O2SAT 98
== END 2024-09-19 14:07 | disposition home or self-care (01) ==
PROVIDERS: PCP Family Medicine; Visit Provider Family Medicine
DX: K42.9 Umbilical hernia without obstruction or gangrene (principal); R41.840 Attention and concentration deficit

== ENCOUNTER → 2024-09-19 11:33 | Outpatient (BNVA) | payer OTHER, SELFPAY | PROVIDERS: PCP Family Medicine; Visit Provider Family Medicine ==

== ENCOUNTER 2024-10-18 14:09 | Outpatient (AMB) | payer OTHER, SELFPAY ==
--- NOTE | 2024-10-18 14:19 | MHC.OFFVIS ---
Vital Signs 10/18/24 14:26 Height 5 ft 7 in Weight 195 lb BMI 30.5 BP 127/67 Blood Pressure Location Lt brachial Position Sitting Pulse 70 Intake Visit Reasons: umbilical hernia Intake Note: Patient is seen in office for evaluation of an umbilical hernia. Pt c/o: onset over 20yrs ago, worse last couple of months, reducible, denies n/v/d/c, denies any other concenrs imaging:zero Director Supply Chain Required: No Accompanied by: Self / Same As Patient Allergies No Known Allergies Allergy (Verified 10/18/24 14:26) Medication List - Last Reconciled 10/18/24 by Ryne Varela MD fluticasone propionate 50 mcg/actuation (Flonase Allergy Relief) 1 spray intranasal Q12H 30 days sildenafil (Viagra) 100 mg PO DAILY PRN 15 days HPI Comments Details: 48-year-old male presenting with an umbilical hernia, first noticed as a change approximately 20 years ago, which increased in size recently a couple of months ago. He reports a sensation of the hernia popping out more significantly recently, but denies any specific inciting events besides general gym activities. During examination, the size of the hernia increases when the patient coughs. He denies pain, nausea, vomiting, and digestive symptoms. The patient has not had any surgeries in this area previously nor does he report other abdominal issues. The patient expresses hesitance toward surgical intervention at this time primarily due to impending employment changes. He does understand the potential for the hernia to grow or eventually require urgent intervention. Nevertheless, the patient wishes to defer potential surgical repair until his employment situation is more settled. 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 - General: Denies any pain associated with the hernia. - Skin: Denies skin redness or swelling over the hernia site. All systems reviewed & are unremarkable except as noted in HPI and below Physical Exam Vital Signs: Last Vital Signs Pulse 70 10/18/24 14:26 BP 127/67 10/18/24 14:26 BMI result Body Mass Index 30.5 Const General: cooperative and no acute distress Nutritional Appearance: well nourished Orientation/consciousness: patient oriented x3 Limitations: no limitations HEENT Head: Yes normocephalic and Yes atraumatic Ears: hearing grossly normal bilaterally Resp Effort & Inspection: normal respiratory effort, no audible wheezes, no cough and no respiratory distress Cardio Jugular venous distension: no JVD GI Other: Small umbilical hernia noted to the right of midline which increases in size with Valsalva maneuvers but reduces with light pressure. Hernia defect measures approximately 2 cm in diameter Inspection: Yes normal to inspection Abdomen image: 1. Umbilical hernia, 2 cm diameter Skin Other: Warm, dry, no rash Neuro General: patient oriented x3 Extrem General: Yes no clubbing, cyanosis or edema Assessment & Plan Assessment & Plan (1) Umbilical hernia: Code(s): K42.9 - Umbilical hernia without obstruction or gangrene Category: Medical Qualifiers: Obstruction and gangrene presence: without obstruction or gangrene Qualified Code(s): K42.9 - Umbilical hernia without obstruction or gangrene Plan 48-year-old male patient presenting with a small umbilical hernia which has recently increased in size. On examination the patient has an easily reducible small umbilical hernia with no tenderness to palpation. We discussed repair of this umbilical hernia on elective basis. He reports that this currently is not a great time to have surgery as he may be losing his job. The hernia could be safely watched until his job situation is more secure. We discussed the signs and symptoms to be aware of for evidence of strangulation or incarceration. He knows to call the office as soon as possible if any these symptoms develop. He expressed understanding and agrees with the plan. He will call our office when he is ready to schedule surgery in his welcome to call for any new questions. Coding Level of Care Code New Pt Level 4 (49182) Diagnoses Umbilical hernia without obstruction and without gangrene K42.9 Obstruction and gangrene presence: without obstruction or gangrene
[2024-10-18 14:26] VITALS: BP 127/67; PULSE 70; BMI 30.5
== END 2024-10-18 14:38 | disposition home or self-care (01) ==
PROVIDERS: PCP Family Medicine; Visit Provider Surgery
DX: K42.9 Umbilical hernia without obstruction or gangrene (principal)
CPT/HCPCS: 99204

== ENCOUNTER → 2024-10-18 14:09 | Outpatient (BNVA) | payer OTHER, SELFPAY | PROVIDERS: PCP Family Medicine; Visit Provider Surgery ==